=== PATIENT | male | born 1975 | race Caucasian/White ===

== ENCOUNTER 2016-12-14 16:42 | Outpatient (CLI) ==
[2016-12-14 17:45] LABS: ERYTHROCYTE SEDIMENTATION RATE 7 mm/hr (0-15); ESR INTERNAL QC INTERNAL QC VALID
== END 2016-12-14 16:43 | disposition home or self-care (01) ==
LOC: LAB 16:42
PROVIDERS: ATTEND General Practice
DX: R21 Rash and other nonspecific skin eruption (principal)
CPT/HCPCS: 36415; 85651; 86140

== ENCOUNTER 2017-03-05 12:13 | Outpatient (CLI) ==
[2017-03-05 13:25] LABS: ALBUMIN 4.5 g/dL (3.4-5.0); ANION GAP 18.1; BUN/CREATININE RATIO 15.38; CALCIUM 9.6 mg/dL (8.2-10.2); CREATININE 1.04 mg/dL (0.60-1.10); PHOSPHORUS 2.8 mg/dL (2.5-4.9); POTASSIUM 4.1 mmol/L (3.5-5.1)
== END 2017-03-05 12:14 | disposition home or self-care (01) ==
LOC: LAB 12:13
PROVIDERS: ATTEND General Practice
DX: E11.9 Type 2 diabetes mellitus without complications (principal)
CPT/HCPCS: 36415; 80069; 83036

== ENCOUNTER 2017-09-04 12:26 | Outpatient (CLI) ==
[2017-09-04 13:00] LABS: BUN/CREATININE RATIO 12.5; CALCIUM 9.7 mg/dL (8.2-10.2); CREATININE 1.12 mg/dL (0.60-1.10); PHOSPHORUS 2.6 mg/dL (2.5-4.9)
== END 2017-09-04 12:27 | disposition home or self-care (01) ==
LOC: LAB 12:26
PROVIDERS: ATTEND General Practice
DX: E11.65 Type 2 diabetes mellitus with hyperglycemia (principal)
CPT/HCPCS: 36415; 80069; 83036

== ENCOUNTER 2018-02-01 12:09 | Outpatient (CLI) | END 2018-02-01 12:10 | disposition home or self-care (01) | LOC: FCC-LAB 12:09 | PROVIDERS: ATTEND General Practice | DX: E11.65 Type 2 diabetes mellitus with hyperglycemia (principal); D64.9 Anemia, unspecified; Z79.899 Other long term (current) drug therapy | CPT/HCPCS: 36415; 80053; 80061; 81001; 83037; 83525; 85008; 85025 ==

== ENCOUNTER 2018-02-12 11:18 | Outpatient (CLI) | END 2018-02-12 11:19 | disposition home or self-care (01) | LOC: FCC-LAB 11:18 | PROVIDERS: ATTEND General Practice | DX: E11.65 Type 2 diabetes mellitus with hyperglycemia (principal); R63.8 Other symptoms and signs concerning food and fluid intake | CPT/HCPCS: 36415; 83519; 83525; 84681 ==

== ENCOUNTER 2018-04-19 16:10 | Outpatient (CLI) ==
[2018-04-12 10:38] VITALS: BMI 35.0
== END 2018-04-19 16:11 | disposition home or self-care (01) ==
LOC: FCC-LAB 16:10
PROVIDERS: ATTEND General Practice
DX: R50.9 Fever, unspecified (principal); W57.XXXA Bitten or stung by nonvenomous insect and other nonvenomous arthropods, initial encounter
CPT/HCPCS: 36415; 80053; 85025; 86757

== ENCOUNTER 2018-04-26 06:41 | Outpatient (CLI) ==
[2018-04-12 10:38] VITALS: BMI 35.0
[2018-04-26] MEDS ORDERED: DOXY-100 100 MG in SODIUM CHLORIDE 100 ML IV STA (07:59)
[2018-04-26 08:05] VITALS: BP 123/70; TEMP 97.8
== END 2018-04-26 06:42 | disposition home or self-care (01) ==
LOC: OPMED 06:41
PROVIDERS: ATTEND General Practice
DX: A77.0 Spotted fever due to Rickettsia rickettsii (principal)
CPT/HCPCS: 36415; 80076; 96365; 96366

== ENCOUNTER 2018-04-26 18:58 | Outpatient (CLI) ==
[2018-04-12 10:38] VITALS: BMI 35.0
[2018-04-26] MEDS ORDERED: DOXY-100 100 MG in SODIUM CHLORIDE 100 ML IV STA (20:17)
[2018-04-26 20:23] VITALS: BP 129/79; TEMP 98.1
== END 2018-04-26 18:59 | disposition home or self-care (01) ==
LOC: LAB 18:58 → OPMED 18:59
PROVIDERS: ATTEND General Practice
DX: A77.0 Spotted fever due to Rickettsia rickettsii (principal)

== ENCOUNTER 2018-04-27 06:20 | Outpatient (CLI) ==
[2018-04-12 10:38] VITALS: BMI 35.0
[2018-04-27] MEDS ORDERED: DOXY-100 100 MG in SODIUM CHLORIDE 100 ML IV STA (07:51)
[2018-04-27 10:05] VITALS: BP 110/74; TEMP 98.1
== END 2018-04-27 10:00 | disposition home or self-care (01) ==
LOC: OPMED 06:20
PROVIDERS: ATTEND General Practice
DX: A77.0 Spotted fever due to Rickettsia rickettsii (principal)

== ENCOUNTER 2019-01-17 17:12 | Emergency (ER) ==
[2019-01-17 17:23] VITALS: BP 143/93; TEMP 100.3; BMI 33.6
[2019-01-17] MEDS ORDERED: LACTATED RINGERS 1,000 ML IV STA (17:43)
--- NOTE | 2019-01-17 17:43 | ED.PDOC ---
General Stated Complaint: vomiting Time Seen by Physician: 17:35 Mode of Arrival: Walk-In Information Source: Patient, Family Exam Limitations: No limitations Nursing and Triage Documentation Reviewed and Agree: Yes Does patient meet sepsis criteria?: No If yes, has appropriate treatment been initiated?: Yes System Inflammatory Response Syndrome: Not Applicable <RILEYCHESTER - Last Filed: 01/17/19 17:40> Stated Complaint: he admits not taking his insulin for 2mos---"i just got tired of doing it"--denies any recent tick bites <CHESTER MCFADDEN - Last Filed: 01/17/19 20:17> ED Provider: Dr. CHESTER REDDY- Chief Complaint: Nausea/Vomiting [facility] Seps[facility] Protocol: For patient's 13 years and over: Temp is 96.8 and below OR 101 and greater Pulse >90 BPM Resp >20/minute Acutely Altered Mental Status Are patient's symptoms suggestive of a new infection, such as: -Pneumonia -Skin, Soft Tissue -Endocarditis -UTI -Bone, Joint Infection -Implantable Device -Acute Abdominal Infection -Wound Infection -Meningitis -Blood Stream Catheter Infection -Unknown Review of Systems - Review Of Systems Constitutional: Reports: Weakness Eyes: Reports: No symptoms Ears, Nose, Mouth, Throat: Reports: No symptoms Respiratory: Reports: No symptoms Cardiac: Reports: No symptoms GI: Reports: Nausea : Reports: No symptoms Musculoskeletal: Reports: No symptoms Skin: Reports: No symptoms Neurological: Reports: No symptoms Endocrine: Reports: No symptoms Hematologic/Lymphatic: Reports: No symptoms All Other Systems: Reviewed and Negative <RILEYCHESTER - Last Filed: 01/17/19 17:40> Past Medical History - Past Medical History Previously Healthy: Yes Endocrine: Reports: DM 1 Cardiovascular: Reports: None, Unknown Respiratory: Reports: None, Unknown Hematological: Reports: None, Unknown Gastrointestinal: Reports: None, Unknown Genitourinary: Reports: None, Kidney stones Neuro/Psych: Reports: None, Unknown Musculoskeletal: Reports: None, Unknown Cancer: Reports: None, Unknown - Surgical History General Surgical History: Reports: None - Family History Family History: Reports: None - Social History Smoking Status: Never smoker Hx Substance Use: No Alcohol Screening: None <CHESTER LIN - Last Filed: 01/17/19 17:40> Physical Exam - Physical Exam Appearance: Obese Ill-appearing: Mild Eyes: ANA MARÍA, EOMI, Conjunctiva clear ENT: Ears normal, Nose normal, Oropharynx normal Respiratory: Airway patent, Breath sounds clear, Breath sounds equal, Respirations nonlabored Cardiovascular: RRR, Pulses normal, No rub, No murmur GI/: Bowel sounds hypoactive Musculoskeletal: Normal strength, ROM intact, No edema, No calf tenderness Skin: Warm, Dry, Normal color Neurological: Sensation intact, Motor intact, Reflexes intact, Cranial nerves intact, Alert, Oriented Psychiatric: Affect appropriate, Mood appropriate <CHESTER LIN - Last Filed: 01/17/19 17:40> Re-Evaluation - Re-Evaluation Time of Re-Evaluation: 20:14 Status: Improved Vital Signs Stable: Yes Pain Level: 0 Appearance: NAD Lungs: Clear Skin: Warm and Dry Neuro: Alert and Oriented X3 CV: RRR <CHESTER MCFADDEN - Last Filed: 01/17/19 20:17> Critical Care Note - Critical Care Note Total Time (mins): 0 <CHESTER LIN - Last Filed: 01/17/19 17:40> Course - Course Hematology/Chemistry: 01/17/19 17:51 01/17/19 17:51 <BEN[facility] HOSPITALLIZETCHESTER - Last Filed: 01/17/19 20:17> - Course Orders, Labs, Meds: Lab Review 01/17/19 01/17/19 01/17/19 17:35 17:35 17:51 WBC 10.64 H RBC 7.59 H Hgb 15.4 Hct 49.3 MCV 65.0 L MCH 20.3 L MCHC 31.2 L RDW Coeff of Mendez 18.4 H Plt Count 236 Immature Gran % (Auto) 0.5 Neut % (Auto) 93.6 Lymph % (Auto) 3.5 L Randolph % (Auto) 2.0 Eos % (Auto) 0.3 Baso % (Auto) 0.1 Immature Gran # (Auto) 0.1 Neut # (Auto) 10.0 H Lymph # (Auto) 0.4 L Randolph # (Auto) 0.2 L Eos # (Auto) 0.0 Baso # (Auto) 0.0 Anisocytosis Not present Microcytosis 1+ Puncture Site O2 Saturation ABG pH ABG pCO2 ABG pO2 ABG HCO3 ABG Total CO2 ABG Base Excess Klaus Test FiO2 % Sodium Potassium Chloride Carbon Dioxide Anion Gap BUN Creatinine Estimated GFR (MDRD) BUN/Creatinine Ratio Glucose Calcium Total Bilirubin AST ALT Alkaline Phosphatase Total Creatine Kinase 71.3 Troponin I < 0.012 Total Protein Albumin Globulin Albumin/Globulin Ratio Amylase 47.3 Lipase 83.3 Urine Color Urine Clarity Urine pH Ur Specific Rembrandt Urine Protein Urine Glucose (UA) Urine Ketones Urine Blood Urine Nitrite Urine Bilirubin Urine Urobilinogen Ur Leukocyte Esterase Influ A Molecular Assay Influ B Molecular Assay 01/17/19 01/17/19 01/17/19 17:51 18:35 18:53 WBC RBC Hgb Hct MCV MCH MCHC RDW Coeff of Mendez Plt Count Immature Gran % (Auto) Neut % (Auto) Lymph % (Auto) Randolph % (Auto) Eos % (Auto) Baso % (Auto) Immature Gran # (Auto) Neut # (Auto) Lymph # (Auto) Randolph # (Auto) Eos # (Auto) Baso # (Auto) Anisocytosis Microcytosis Puncture Site Lrad O2 Saturation 97.0 ABG pH 7.406 ABG pCO2 33.2 L ABG pO2 84.0 L ABG HCO3 20.9 L ABG Total CO2 22 ABG Base Excess -4 L Klaus Test + FiO2 % 21.0 Sodium 135.1 Potassium 3.83 Chloride 100.3 Carbon Dioxide 24.3 Anion Gap 14.33 BUN 13.2 Creatinine 0.91 Estimated GFR (MDRD) 91.00 BUN/Creatinine Ratio 14.50 Glucose 250.4 H Calcium 9.09 Total Bilirubin 1.06 AST 25.7 ALT 26.5 Alkaline Phosphatase 80.2 Total Creatine Kinase Troponin I Total Protein 7.43 Albumin 4.70 Globulin 2.73 Albumin/Globulin Ratio 1.72 Amylase Lipase Urine Color Urine Clarity Urine pH Ur Specific Rembrandt Urine Protein Urine Glucose (UA) Urine Ketones Urine Blood Urine Nitrite Urine Bilirubin Urine Urobilinogen Ur Leukocyte Esterase Influ A Molecular Assay Negative by naat Influ B Molecular Assay Negative by naat 01/17/19 19:52 WBC RBC Hgb Hct MCV MCH MCHC RDW Coeff of Mendez Plt Count Immature Gran % (Auto) Neut % (Auto) Lymph % (Auto) Randolph % (Auto) Eos % (Auto) Baso % (Auto) Immature Gran # (Auto) Neut # (Auto) Lymph # (Auto) Randolph # (Auto) Eos # (Auto) Baso # (Auto) Anisocytosis Microcytosis Puncture Site O2 Saturation ABG pH ABG pCO2 ABG pO2 ABG HCO3 ABG Total CO2 ABG Base Excess Klaus Test FiO2 % Sodium Potassium Chloride Carbon Dioxide Anion Gap BUN Creatinine Estimated GFR (MDRD) BUN/Creatinine Ratio Glucose Calcium Total Bilirubin AST ALT Alkaline Phosphatase Total Creatine Kinase Troponin I Total Protein Albumin Globulin Albumin/Globulin Ratio Amylase Lipase Urine Color Yellow Urine Clarity Clear Urine pH 5.5 Ur Specific Rembrandt 1.020 Urine Protein Negative Urine Glucose (UA) 2+ Urine Ketones 3+ Urine Blood Negative Urine Nitrite Negative Urine Bilirubin Negative Urine Urobilinogen 0.2 Ur Leukocyte Esterase Negative Influ A Molecular Assay Influ B Molecular Assay Orders Category Date Time Status ABG DRAW REQUEST Stat CARDIO 01/17/19 18:35 Completed EKG-(ED ONLY) Stat CARDIO 01/17/19 18:36 Completed IV [ED IV/MEDIPORT/POWERPORT] .ONCE EMERGENCY 01/17/19 17:42 Active ABG Stat LAB 01/17/19 18:35 Completed AMYLASE Stat LAB 01/17/19 17:35 Completed CBC W/ AUTO DIFF Stat LAB 01/17/19 17:51 Completed CMP [COMPREHENSIVE METABOLIC PANEL] Stat LAB 01/17/19 17:51 Completed CREATINE KINASE Stat LAB 01/17/19 17:35 Completed FLU A/B MOLECULAR Stat LAB 01/17/19 18:53 Completed LIPASE Stat LAB 01/17/19 17:35 Completed MOLECULAR GROUP A STREP Stat LAB 01/17/19 18:53 Completed RBC MORPHOLOGY Stat LAB 01/17/19 17:51 Completed TROPONIN I Stat LAB 01/17/19 17:35 Completed UA [URINALYSIS C & S IF INDICATED] Stat LAB 01/17/19 19:52 Completed 0.9 % Sodium Chloride [Saline Flush] MEDS 01/17/19 17:42 Ordered 1 syr IVF PRN PRN Ondansetron HCl/Pf [Zofran 4 mg/2 ml] MEDS 01/17/19 18:36 Discontinued 4 mg IVP ONCE STA Ringers Lactated Solution [Lactated Ringers] 1,000 ml MEDS 01/17/19 17:43 Discontinued IV BOLUS Sodium Chloride 0.9% [Sodium Chloride] 1,000 ml MEDS 01/17/19 19:03 Active IV 100 mls/hr CT ABDOMEN/PELVIS WO CONTRAST Stat RADS 01/17/19 18:36 Completed Medications Generic Name Dose Route Start Last Admin Trade Name Freq PRN Reason Stop Dose Admin Sodium Chloride 1,000 mls @ 100 mls/hr 01/17/19 19:03 01/17/19 19:06 Sodium Chloride IV 01/18/19 05:02 100 mls/hr .Q10H STA Administration Sodium Chloride 1 syr 01/17/19 17:42 01/17/19 18:03 Saline Flush IVF 1 syr PRN PRN Administration To flush IV Discontinued Medications Generic Name Dose Route Start Last Admin Trade Name Freq PRN Reason Stop Dose Admin Lactated Ringer's 1,000 mls @ 1,000 mls/hr 01/17/19 17:43 01/17/19 18:03 Lactated Ringers IV 01/17/19 18:42 1,000 mls/hr BOLUS STA Administration Ondansetron HCl 4 mg 01/17/19 18:36 01/17/19 18:51 Zofran 4 Mg/2 Ml IVP 01/17/19 18:37 4 mg ONCE STA Administration Vital Signs: Temp Pulse Resp BP Pulse Ox 01/17/19 17:12 100.3 F H 115 H 20 143/93 H 97 Departure <RILEYCHESTER - Last Filed: 01/17/19 17:40> - Departure Time of Disposition: 20:14 Pt referred to PMD for follow-up: Yes IPMP verified?: No Disposition Discussed With: Patient <PETELIZETCHESTER - Last Filed: 01/17/19 20:17> - Departure Disposition: HOME SELF-CARE Discharge Problem: Vomiting Instructions: Acute Nausea and Vomiting (ED) Condition: Good Additional Instructions: resume your insulin---f/u with dr ocampo next week Allergies/Adverse Reactions: Allergies metformin Adverse Reaction (Severe, Verified 01/17/19 17:21) Diarrhea severe at most 10x per day. ibuprofen Adverse Reaction (Verified 01/17/19 17:21) irritates stomach Muscle relaxers Adverse Reaction (Mild, Uncoded 04/26/18 08:20) irritates stomach
[2019-01-17] MEDS ORDERED: ZOFRAN 4 MG/2 ML IVP STA (18:36)
[2019-01-17] MEDS ORDERED: SODIUM CHLORIDE 1,000 ML IV STA (19:03)
--- NOTE | 2019-01-17 19:27 | CT ---
EXAM: Noncontrast CT of the abdomen and pelvis. HISTORY: Vomiting. COMPARISON: None. TECHNIQUE: Contiguous axial images at 3 mm intervals were obtained from lung bases through the pelvi s. No contrast was given. Coronal reformats were reviewed. FINDINGS: The study is limited without contrast. CHEST: LUNG BASES: The lung bases show no lobar consolidation or effusion. HEART: The heart size is within normal limits. ABDOMEN: Evaluation of the soft tissue organs is limited without contrast. LIVER: Noncontrast images of the liver show no solid mass lesion or intrahepatic ductal dilatation. BILIARY: The gallbladder is normally distended. No gallstones are noted. No pericholecystic fluid or inflammation. The common bile duct is normal. SPLEEN: The spleen is unremarkable. PANCREAS: The pancreas shows no mass lesion or peripancreatic inflammation. ADRENAL GLANDS: The adrenal glands are normal. RENAL: The kidneys show no hydronephrosis there is a nonobstructing calcification in the left mid k idney, measuring up to 3 mm. There are no obstructing ureteral stones. No solid mass lesions are id entified. AORTA: No significant aortic calcifications are seen. No aneurysm is identified. RETROPERITONEUM: There is no retroperitoneal or mesenteric adenopathy. BOWEL: The bowel is unopacified. There is no obstruction or inflammatory change. There is no free fluid or free air. No significant inflammatory changes are seen. The appendix is identified and is normal. PELVIS: BLADDER: The bladder is well distended and appears normal. GENITOURINARY STRUCTURES: The prostate is unremarkable. OSSEOUS STRUCTURES: The osseous structures are normal for age. IMPRESSION 1. Limited study without contrast.No acute intra-abdominal abnormality. No obstructing ureteral sto laly. 2. The appendix is normal. 3. Normal nonobstructing left nephrolithiasis.
== END 2019-01-17 20:38 | disposition home or self-care (01) ==
LOC: ED 17:12
DX: R11.2 Nausea with vomiting, unspecified (principal); R53.1 Weakness; E10.9 Type 1 diabetes mellitus without complications; Z91.14 Patient's other noncompliance with medication regimen
CPT/HCPCS: 36415; 80053; 81001; 82150; 82550; 82803; 82962; 83690; 84484; 85008; 85025; 87502; 87651; 93005; 93010; 96361; 96374; 99283

== ENCOUNTER 2019-04-22 12:43 | Inpatient (IN) ==
[2019-04-22 13:19] VITALS: BMI 34.0
[2019-04-22] MEDS ORDERED: LACTATED RINGERS 1,000 ML IV SCH (14:00)
--- NOTE | 2019-04-22 14:47 | CT ---
EXAM: CT abdomen pelvis without contrast HISTORY: Nausea, vomiting, diarrhea COMPARISON: None TECHNIQUE: CT abdomen pelvis performed without intravenous contrast. Coronal and sagittal reformatt ed images obtained. FINDINGS: Mild bibasilar subsegmental atelectasis. No free air. No acute abnormalities of the bone s. Heart normal in size. Liver diffusely decreased attenuation. Liver is enlarged. Gallbladder un remarkable. Pancreas unremarkable. Pain unremarkable. Adrenals unremarkable. A few small bilatera l renal calculi measuring up to 3 mm on the left. No hydronephrosis. No calculi visualized in the n ormal course of the ureters. Bladder only mildly distended and poorly evaluated, grossly unremarkabl e.. Prostate normal in size. Small fat-containing right inguinal hernia. Aorta normal in caliber. No lymphadenopathy or ascites. Stomach unremarkable. No dilated loops small bowel. Appendix appea rs normal. Colon unremarkable. No inflammatory stranding identified in the abdomen pelvis. IMPRESSION: 1. No acute inflammatory process identified in the abdomen pelvis 2. Hepatic steatosis. Hepatomegaly. 3. Bilateral nephrolithiasis. No hydronephrosis.
--- NOTE | 2019-04-22 14:50 | DI ---
Exam: Two views of the chest. Comparison: None available. Reason for exam: Nausea, vomiting blood in stool. FINDINGS: No pneumothorax, pleural effusion, or focal airspace consolidation. The cardiac silhouett e is not enlarged. The imaged osseous structures appear grossly unremarkable without acute fracture. Impression: No acute cardiopulmonary process.
[2019-04-22] MEDS: HUMALOG SUBCUT SCH (16:50)
[2019-04-22] MEDS ORDERED: TYLENOL PO PRN (18:09)
[2019-04-22] MEDS: LANTUS SUBCUT SCH (20:50)
[2019-04-22] MEDS ORDERED: INFUVITE ADULT IV SCH (21:30)
[2019-04-22] MEDS ORDERED: POTASSIUM CHLORIDE IV SCH (21:30)
[2019-04-22] MEDS ORDERED: [UNRECOGNIZED DRUG - OTHER] IV SCH (21:30)
[2019-04-22] MEDS ORDERED: POTASSIUM CHLORIDE 10 MEQ VIAL IV ONE (21:42)
[2019-04-22] MEDS ORDERED: INFUVITE ADULT IV ONE (21:43)
[2019-04-23] MEDS: ZITHROMAX PO SCH ×2 (00:35→08:28)
[2019-04-23] MEDS: HUMALOG SUBCUT SCH ×3 (08:28→17:04)
[2019-04-23] MEDS ORDERED: POTASSIUM CHLORIDE IV SCH (08:30)
[2019-04-23] MEDS ORDERED: [UNRECOGNIZED DRUG - OTHER] IV SCH (08:30)
[2019-04-23] MEDS ORDERED: INFUVITE ADULT IV SCH (08:30)
--- NOTE | 2019-04-23 11:40 | CONS ---
DATE OF CONSULTATION: 04/23/19 REASON FOR CONSULTATION: Cardiovascular status. HISTORY OF PRESENT ILLNESS: This 44 year old WHITE/ M was hospitalized 04/22/19. The patient has acute gastroenteritis type of symptoms for last 3 to 4 weeks, attributes that to stopping insulin. For the past several weeks, the patient hasn't been taking insulin because it is too expensive for him to buy. For the past 24 hours the patient has developed bloody stools. Denies fever or chills. REVIEW OF SYSTEMS: CONSTITUTIONAL: No night sweats. No fatigue, malaise, lethargy. No fever or chills. HEENT: Eyes: No visual changes. No eye pain. No eye discharge. ENT: No sinus drainage. No epistaxis. No sinus pain. No sore throat. No odynophagia. No ear pain. No congestion. RESPIRATORY: No cough, no congestion. No hemoptysis. No shortness of breath. CARDIOVASCULAR: No angina symptoms. No CHF symptoms. No atypical chest pain for CAD. No palpitations. No orthopnea. GASTROINTESTINAL: GI symptoms like gastroenteritis. No abdominal pain. No nausea or vomiting. No diarrhea or constipation. No hematemesis. No hematochezia. GENITOURINARY: No urgency. No frequency. No dysuria. No hematuria. No obstructive symptoms. No discharge. No pain. No significant abnormal bleeding. MUSCULOSKELETAL: No musculoskeletal pain. No joint swelling. NEUROLOGICAL: Awake, alert, oriented times three. No headache. No neck pain. No syncope. No seizures. No dizziness. PSYCHIATRIC: Not anxious. No depression. No suicidal thoughts. No homicidal thoughts. SKIN: No rash. No lesions. No wounds. ENDOCRINE: No unexplained weight loss. No weight gain. HEMATOLOGIC/LYMPHATIC: No anemia. No purpura. No petechiae. No prolonged or excessive bleeding. No palpable lymph nodes. MEDICATIONS: Lantus 25 units in evening - hasn't been taking it for four weeks. ALLERGIES: METFORMIN, IBUPROFEN, (MUSCLE RELAXERS) PAST MEDICAL HISTORY: Diabetes mellitus type 2 SOCIAL/PERSONAL/FAMILY HISTORY: The patient is a nonsmoker. He is , lives with . No history of drug abuse. No history of alcohol abuse. Father has history of heart diease, alive, age 78. History of stroke. PHYSICAL EXAMINATION: VITAL SIGNS: Temperature 97.5 F, Pulse 75, Respiratory Rate 20, BP 124/81, Pulse Ox 100% HEENT: Head normocephalic, atraumatic. Eyes: Extraocular muscles are intact. Pupils are equal, round and reactive to light and accommodation. Ears: No lesions. Nose appeared normal. Throat: No exudate or erythema. NECK: Supple. No JVD, no carotid bruit. No lymphadenopathy or thyromegaly. LUNGS: Clear to auscultation. Percussion note normal. Chest symmetrical. HEART: S1, S2, no S3. No murmurs. No cyanosis or clubbing. No ascites. Pulses: Dorsalis pedis and posterior tibial pulses +1 to +2 bilaterally. ABDOMEN: Soft. Nontender. Bowel sounds active. No CVA tenderness. No mass felt. EXTREMITIES: No edema. Full range of motion of all extremities, equal. NEUROLOGIC: No focal deficit. Cranial nerves II through XII are grossly intact. No headache, no double vision or headache. SKIN: Not dry. Intact. Turgor - normal. LYMPHATIC: No palpable lymph nodes/no lymphedema. MUSCULOSKELETAL: Normal joints with no swelling. Muscle tone is normal. LAB REVIEW: 04/23/19 04:44 04/23/19 04:44: Sodium 138.7, Potassium 3.69, Chloride 102.9, Carbon Dioxide 25.1, Anion Gap 14.39, BUN 9.4, Creatinine 0.83, Estimated GFR (MDRD) 101.00, BUN/Creatinine Ratio 11.32, Glucose 182.8 H D, Calcium 8.62, Total Bilirubin 0.89, AST 27.2, ALT 26.0, Alkaline Phosphatase 63.6, Total Protein 6.81, Albumin 3.83, Globulin 2.98, Albumin/Globulin Ratio 1.28 04/23/19 04:44: WBC 8.87, RBC 7.15 H, Hgb 14.5, Hct 46.4, MCV 64.9 L, MCH 20.3 L , MCHC 31.3 L, RDW Coeff of Mendez 17.8 H, Plt Count 230, Immature Gran % (Auto) 0.6, Neut % (Auto) 62.4, Lymph % (Auto) 27.3, Beau[place] % (Auto) 6.4, Eos % (Auto) 2.7, Baso % (Auto) 0.6, Immature Gran # (Auto) 0.1, Neut # (Auto) 5.5, Lymph # ( Auto) 2.4, Beau[place] # (Auto) 0.6, Eos # (Auto) 0.2, Baso # (Auto) 0.1, Plt Morphology Comment Few large platelets, Anisocytosis 1+, Microcytosis 1+ 04/22/19 20:45: ESR 2 04/22/19 14:45: PT 9.7, INR 0.97, APTT 26.5 04/22/19 14:00: Puncture Site R rad, O2 Saturation 96.0, ABG pH 7.400, ABG pCO2 35.2, ABG pO2 83.0 L, ABG HCO3 21.8 L, ABG Total CO2 23, ABG Base Excess -3 L, Klaus Test +, FiO2 % 21.0 04/22/19 13:58: Stl Occult Blood (IFOB) Positive, Stool Occult Blood #2 No specimen received, Stool Occult Blood #3 No specimen received 04/22/19 12:05: Urine Color Yellow, Urine Clarity Clear, Urine pH 5.5, Ur Specific Mershon 1.015, Urine Protein Negative, Urine Glucose (UA) 3+ H, Urine Ketones Negative, Urine Blood Negative, Urine Nitrite Negative, Urine Bilirubin Negative, Urine Urobilinogen 0.2, Ur Leukocyte Esterase Negative 04/22/19 12:05: Procalcitonin < 0.05 04/22/19 12:05: Hemoglobin A1c 12.74 H D 04/22/19 12:05: Sodium 138.1, Potassium 3.95, Chloride 99.4, Carbon Dioxide 25.3 , Anion Gap 17.35, BUN 10.6, Creatinine 0.83, Estimated GFR (MDRD) 101.00, BUN/ Creatinine Ratio 12.77, Glucose 314.3 H, Calcium 9.51, Total Bilirubin 0.80, AST 28.3, ALT 28.8, Alkaline Phosphatase 83.5, Total Protein 8.23 H, Albumin 4.78, Globulin 3.45, Albumin/Globulin Ratio 1.38, Triglycerides 274.8 H, Cholesterol 222.1 H, LDL Cholesterol, Calc 130, VLDL Cholesterol 55 H, HDL Cholesterol 37.6, Cholesterol/HDL Ratio 5.9, Amylase 72.4, Lipase 114.2 04/22/19 12:05: WBC 8.32, RBC 7.66 H, Hgb 15.7, Hct 50.0, MCV 65.3 L, MCH 20.5 L , MCHC 31.4 L, RDW Coeff of Mendez 18.3 H, Plt Count 278, Immature Gran % (Auto) 0.5, Neut % (Auto) 69.9, Lymph % (Auto) 21.6, [place] % (Auto) 5.0, Eos % (Auto) 2.4, Baso % (Auto) 0.6, Immature Gran # (Auto) 0.0, Neut # (Auto) 5.8, Lymph # ( Auto) 1.8, [place] # (Auto) 0.4, Eos # (Auto) 0.2, Baso # (Auto) 0.1, Anisocytosis Not present, Microcytosis 1+ ASSESSMENT: 1. Evaluation of cardiovascular status seems to be normal at the present time. 2. History of Diabetes Mellitus Type 2, off insulin per patient's choice. 3. Acute gastroenteritis with bloody diarrhea, etiology unknown. RECOMMENDATIONS: 1. EKG. 2. Agrees with Accu-Cheks with sliding scale. 3. Advised to take insulin on a regular basis. 4. Lipid profile unknown. The patient is being followed by Dr. aSlas as primary care provider. Thanks for referral, will follow. PLAN: Plan and coordination of the patient's care discussed in the presence of Handkerchief Maker and Nurse. SCRIBED BY: Phyllis ROUSSEAU scribed while in presence of service performed by Dr. KELLI DAILY on 04/23/19 (08) SCRIBED BY: Phyllis ROUSSEAU scribed while in presence of service performed by Dr. KELLI DAILY on 04/23/19 (807) [facility] SYSTEM[facility]ip
[2019-04-23] MEDS: LANTUS SUBCUT SCH (21:12)
[2019-04-24] MEDS: ZITHROMAX PO SCH (08:06)
[2019-04-24] MEDS: HUMALOG SUBCUT SCH ×2 (08:07→12:00)
--- NOTE | 2019-04-24 11:59 | HP ---
DATE OF SERVICE: 04/22/19 CHIEF COMPLAINT: Nausea, vomiting, diarrhea, blood in the stool and numbness to the right lower extremity. HISTORY OF PRESENT ILLNESS: Mr. Abbott is a pleasant 44-year-old patient of Dr. Salas who has not been to see Dr. Salas since almost one year. He has been out of his insulin for approximately four weeks now. He tells me that his blood sugars have been running extremely high. The readings that he has given me he said at night has been over 300 and in the mornings approximately 260. He also tells me that he has been losing feeling to the bottom of his right foot along with tingling. He admits to being noncompliant with his medicines but he admits that he has been out of his medicines. He had previously been taking Tresiba 25 units at nightime and he has been taking NovoLog 8 to 10 units three times a day with meals. He tells me that everytime he eats certain foods especially if they are fatty foods he will get very sick and vomit these foods up or he will have diarrhea. He tells me that bland diets work better for him. He does better when he eats grilled chicken or again very bland foods. At 2 o'clock this morning he had an episode of bloody stool then recently right before he came in for his appointment he had an other episode of bloody stool. He tells me it is bright red blood. He noticed it in the toilet and then he noticed it when he was wiping as well and it was on the toilet paper. He overall does not feel well. He is not having any particular abdominal pain and there is no abdominal pain on exam. Again he has not had insulin in approximately four weeks. There is some concern here for some possible gastroparesis. He does tell me that he had an ER visit approximately four weeks ago for similar complaints of nausea and vomiting. He did have an ultrasound completed at this time as well as some lab work done. The last imaging found in his chart was done in January of [address] scan of the abdomen and pelvis. I did see labs from 04/13/18 and did see blood work from 01/17/19. Other than that I did not see any other lab work completed from four weeks ago. Labs were obtained in the office today. Dr. Salas did decide with the acute concerns to go ahead and admit the patient to the hospital, start him on IV fluids, order labs and get a further workup on the patient. PAST PERSONAL HISTORY: Diabetes mellitus type 2 Gastroesophageal reflux disease Migraine headache Thallasemia minor Kidney stones PAST SURGICAL HISTORY: None recorded. FAMILY HISTORY: Coronary artery disease in his father Diabetes mellitus in a brother Artery stents in father, myocardial infarction and thallasemia minor in his mother SOCIAL HISTORY: The patient does report occasional use of beer. Denies any substance abuse. No reports of smoking. MEDICATIONS: (Current Home) Currently the patient is not taking any home medications. ALLERGIES: METFORMIN, IBUPROFEN AND MUSCLE RELAXERS REVIEW OF SYSTEMS: CONSTITUTIONAL: Generalized fatigue and weakness. No reports of fevers, chills and nightsweats or weight changes. HEENT: Does report a history of migraine headaches. Denies any blurred vision, nasal drainage or sore throat. CARDIOVASCULAR: No reports of any chest pain, irregular rhythm, orthopnea or peripheral edema. LUNGS: No complaints of shortness of breath, cough, congestion or history of lung disease. GI: Does complain of nausea, vomiting, diarrhea, blood in the stool. No complaints of constipation or abdominal pain. : No reports of dysuria, hematuria, nocturia or urinary incontinence. MUSCULOSKELETAL: No reports of unusual muscle pain, joint redness or swelling. NEUROLOGIC: No reports of any lateral weakness or CVA or stroke-like symptoms. Does complain of generalized weakness and fatigue. No reports of dizziness. PSYCHIATRIC: No complaints of anxiety, depression or mood changes. ENDOCRINE: Does have a history of diabetes mellitus. No reports of thyroid disease. No reports of increase in thirst, urination, heat or cold intolerance. INTEGUMENT: No reports of rashes, lesions or skin changes. PHYSICAL EXAMINATION: GENERAL: He is alert and oriented. Well-nourished in no acute distress. VITAL SIGNS: Height 5'8, weight 228 lbs, pulse 85, respirations 20, blood pressure 144/88. 02 sat 98% on room air. HEENT: Head normocephalic, atraumatic. Pupils are equal. Conjunctivae are clear. Mucous membranes are moist. NECK: Supple. No lymphadenopathy. No thyromegaly. No carotid bruits auscultated. CARDIOVASCULAR: S1, S2, regular rate and rhythm. No peripheral edema. LUNGS: Clear. No acute distress. ABDOMEN: Soft, bowel sounds are positive in all four quads. No rebound tenderness or rigidity. NEUROLOGIC: Cranial nerves 2-12 are grossly intact. No overt neurological deficit. SKIN: Warm and dry. No overt rashes, lesions or wounds. LABS AND DIAGNOSTIC TESTING: Ordered. The patient has not had any labs or diagnostic testing done in quite some time. ASSESSMENT/PLAN: 1. Persistent nausea, vomiting, rule out gastroparesis. 2. Diarrhea with bright red blood per rectum. 3. Diabetes mellitus Type 2, uncontrolled. 4. Noncompliance with medical regimen. 5. History of anemia. 6. Generalized weakness and fatigue. 7. History of migraine. 8. Gastroesophageal reflux disease. 9. Obesity. PLAN: 1. Admit the patient inpatient. 2. The patient will be kept NPO. 3. Will do CT scan of the abdomen and pelvis. 4. Obtain STAT labs including occult blood stool as well as stool cultures as well. 5. We will start him on Lantus Insulin 25 units at bedtime, Humalog 10 units with each meal. 6. Will start him on IV fluids, Lactated Ringers with 20 mEq potassium with MVI 125 mL/hr. 7. Check blood sugars on him two hours after meals. 8. Further orders and recommendations per Dr. Salas. TIME SPENT: GREATER THAN 65 MINUTES MTDD
--- NOTE | 2019-04-24 12:55 | PN ---
DATE OF SERVICE: 04/23/19 SUBJECTIVE: The patient was seen this morning. Vital signs this morning temperature 97.5, pulse 75, blood pressure 124/81, pulse ox 100% on room air. His microbiology of his stool cultures were reviewed. His stool culture preliminary results have grown out positive for Campylobacter antigen, negative for Shiga Toxin I and negative for Shiga Toxin 2. White blood cells present for fecal leukocytes. Per lab review his white blood cell count is normal this morning. His hemoglobin 14.5, hematocrit 46.4. Chemistry panel sodium 138.7, BUN 9.4, creatinine 0.83. His glucose down to 182.8 after initiation of insulin. Hemoglobin A1C 12.74. Procalcitonin less than 0.05. Blood gases reviewed, pH 7.4, pc02 35.2, p02 83, HC03 21.8, 02 saturation 96%. Occult blood stool positive. Sed rate normal at 2. Amylase and lipase are normal. Today abdomen is soft, bowel sounds are positive in all four quads, nontender on exam. Lungs are clear. Heart regular rate and rhythm. He has had no episodes of nausea and vomiting this morning. He has been NPO. He continues on IV fluids. He does tell me that his blood sugars have been improved. Overall he does feel a bit better. Further orders and recommendations per Dr. Salas. [facility]
[2019-04-24 14:37] VITALS: BP 130/67; TEMP 98.1
--- NOTE | 2019-04-25 13:42 | CONS ---
DATE OF SERVICE: 04/24/19 CONSULT FOLLOWUP SUBJECTIVE: The patient was seen on followup on consultation. The patient has been hospitalized with acute gastroenteritis and Campylobacter. The patient is feeling alot better. He has formed stools. REVIEW OF SYSTEMS: CONSTITUTIONAL: No night sweats. No fatigue, malaise, lethargy. No fever or chills. HEENT: Eyes: No visual changes. No eye pain. No eye discharge. ENT: No runny nose. No epistaxis. No sinus pain. No sore throat. No odynophagia. No ear pain. No congestion. RESPIRATORY: No cough, no congestion. No hemoptysis. CARDIOVASCULAR: No angina symptoms. No CHF symptoms. No atypical chest pain for CAD. No palpitations. No shortness of breath. GASTROINTESTINAL: No abdominal pain. No nausea or vomiting. No diarrhea or constipation. No hematemesis. No hematochezia. GENITOURINARY: No urgency. No frequency. No dysuria. No hematuria. No obstructive symptoms. No discharge. No pain. No significant abnormal bleeding. MUSCULOSKELETAL: No musculoskeletal pain. No joint swelling. No arthritis. The patient is up and about. NEUROLOGICAL: No headache. No neck pain. No syncope. No seizures. No dizziness. PSYCHIATRIC: Not anxious. No depression. No suicidal thoughts. No homicidal thoughts. SKIN: No rash. No lesions. No wounds. ENDOCRINE: No unexplained weight loss. No weight gain. HEMATOLOGIC/LYMPHATIC: No anemia. No purpura. No petechiae. No prolonged or excessive bleeding. No palpable lymph nodes. PHYSICAL EXAMINATION: GENERAL: The patient is oriented to time, place and person. VITAL SIGNS: Temperature 97.6, pulse 80, respiratory rate 15, blood pressure 130 /80 pule ox more than 98% on room air. HEENT: Head normocephalic, atraumatic. Eyes: Extraocular muscles are intact. Pupils are equal, round and reactive to light and accommodation. Ears: No lesions. Nose appeared normal. Throat: No exudate or erythema. NECK: Supple. No JVD, no carotid bruit. No lymphadenopathy or thyromegaly. LUNGS: Decreased breath sounds but clear to auscultation. Percussion note normal. Chest symmetrical. HEART: S1, S2, no S3. No murmurs. No cyanosis or clubbing. No ascites. Pulses: Dorsalis pedis and posterior tibial pulses +1 to +2 bilaterally. ABDOMEN: Soft. Nontender. Bowel sounds active. No CVA tenderness. No mass felt. EXTREMITIES: No edema. Full range of motion of all extremities, equal. NEUROLOGIC: No focal deficit. Cranial nerves II through XII are grossly intact. No headache, no double vision or headache. SKIN: Not dry. Intact. Turgor - normal. LYMPHATIC: No palpable lymph nodes/no lymphedema. MUSCULOSKELETAL: Normal joints with no swelling. Muscle tone is normal. ASSESSMENT: 1. Campylobacter 2. Acute gastroenteritis RECOMMENDATIONS: 1. Discussed the case with attending. Concern was that the Campylobacter could affect the cardiac status. So far the patient's cardiovascular status is stable with no evidence of CHF or coronary insufficiency or pericarditis or myocarditis. 2. The patient has history of diabetes mellitus, poorly treated the patient's choice. He has stopped taking insulin for past 4 weeks. Strongly advised to continue to take his insulin on regular basis and have regular followup with his primary care. 3. Non-HDL goal discussed which should be 100. Cardiovascular status stable. MTDD
--- NOTE | 2019-04-25 13:42 | PN ---
The patient was seen on consultation 04/23/19: Level 5 04/24/19: Intermediate MTDD
--- NOTE | 2019-04-29 13:01 | DS ---
DATE OF SERVICE: 04/24/19 DISCHARGE DIAGNOSES: 1. ACUTE COLITIS DUE TO CAMPYLOBACTER CONFIRMED PER STOOL CULTURE. 2. CAMPYLOBACTER GASTROENTEROCOLITIS. 3. UNCONTROLLED DIABETES MELLITUS TYPE 2. 4. DIABETES PERIPHERAL NEUROPATHY. 5. POSSIBLE GASTROPARESIS. BRIEF HISTORY OF PRESENT ILLNESS/HOSPITAL COURSE: Mr. Abbott is a pleasant 44-year-old patient of Dr. Salas who has been lost to followup for approximately one year. He has been out of his insulin for about four weeks now. His blood sugar has been running extremely high. He also had reported losing feeling to the bottom of his right foot along with tingling sensation. He does admit to being noncompliant with his medicines but he admits this is because he has been out of his medicines. He did previously take Tresiba 25 units at bedtime and had been taking Novolog 8 to 10 units three times a day with meals. He tells us at his initial visit on the that every time he eats certain foods, especially if they are fatty, he will get very sick and will have emesis of his food and will have diarrhea. He tells me that bland foods work better. He reports that at two o'clock in the morning prior to admission he had an episode of bloody stool then right before he was seen in the office he had another episode of bloody stool. He does describe the blood as a bright red blood and he does notice it in the toilet and then he notices it when he wipes. He does not feel well. He denies having any particular abdominal pain. He denies anybody in his family being sick. There are some concerns for possible gastroparesis due to the uncontrolled diabetes mellitus. He does report that he had an emergency department visit approximately four weeks ago for similar complaints of nausea and vomiting. He had an ultrasound completed at this time as well as some lab work. The last imaging found in his chart was done in January of [address] scan of the abdomen and pelvis and I did see lab works from April 2018 and did see blood work from January of 2019. Other than that I did not see lab work completed from four weeks ago. Decision was made to admit the patient to the hospital for further workup and treatment because of the bloody diarrhea and persistent nausea and vomiting. While inpatient he did have an array of blood work and his stool cultures did grow out positive for Campylobacter imaging. On admission white count normal at 8.32, hemoglobin 15.7, hematocrit 50, platelet count 278. INR 0.97. Blood gases showed a p02 of 83, hco3 of 21.8, pH 7.40. Hemoglobin A1C was 12.74, electrolytes normal. LFTs were normal. CRP 7, BNP was 26, procalcitonin less than 0.05. Urinalysis showed 3+ glucose otherwise negative. The patient was started on Zithromax for Campylobacter infection. Overall the patient is doing better and symptoms have improved. He denies any abdominal pain. He is very anxious to go home. We are setting him up with [employer] plan to afford his insulin for Lantus and Novolog flexpen and those insulins have been called to [facility] per our office. He did have a dose of Zithromax today so he will need two additional doses of Zithromax and then those two tablets have been called in per our office as well. Today on exam, his lungs are clear. Heart regular rate and rhythm. Plans are for a gastric emptying study tomorrow. He understands to do blood sugar monitoring fasting in the morning and two hours after breakfast, two hours after lunch and then two hours after supper. He denies any complaints today. He is again ready to go home. He will followup in the office next week. As far as medicines, the Humalog on his medicine sheet that was wrote in discharge instructions to discontinue that and then that will be changed over to a Novolog Flexpen and then he will continue the Lantus that has been called in. DISCHARGE DIET: Strict ADA diet. ACTIVITY LEVEL: Increase activity as tolerated. FOLLOWUP APPOINTMENT: He will followup next week and will further decide labs and diagnostic testing. TIME SPENT: GREATER THAN 30 MINUTES MTDD
== END 2019-04-24 15:30 | disposition home or self-care (01) | DRG 372 ==
LOC: MEDSURG A 12:43
PROVIDERS: ADMIT General Practice; ATTEND General Practice
DX: A04.5 Campylobacter enteritis (principal); K92.1 Melena; E11.65 Type 2 diabetes mellitus with hyperglycemia; E11.42 Type 2 diabetes mellitus with diabetic polyneuropathy; E66.9 Obesity, unspecified; K31.84 Gastroparesis; K21.9 Gastro-esophageal reflux disease without esophagitis; R53.1 Weakness; R53.83 Other fatigue; R19.7 Diarrhea, unspecified; R20.0 Anesthesia of skin; Z68.34 Body mass index [BMI] 34.0-34.9, adult; Z79.4 Long term (current) use of insulin; Z91.14 Patient's other noncompliance with medication regimen
CPT/HCPCS: 36415; 80053; 80061; 81001; 82150; 82272; 82803; 82962; 83036; 83519; 83525; 83690; 83880; 84145; 85008; 85025; 85610; 85651; 85730; 86140; 86617; 87015; 87040; 87045; 87899; 89055; 93005; 93010; 97802

== ENCOUNTER 2019-04-25 07:45 | Outpatient (CLI) ==
--- NOTE | 2019-04-25 13:55 | NM ---
EXAM: Gastric emptying study HISTORY: Type 2 diabetes with hyperglycemia and vomiting. COMPARISON: None of this type. PROCEDURE: The patient was administered 2.1 mCi of 99m technetium sulfur colloid mixed with eggs toas t and water as a solid phase meal. Imaging of the stomach was performed at one hour intervals for 3 hours in anterior and posterior projections simultaneously. Subsequently time activity curves were c alculated using anterior, posterior and geometric mean data. The gastric emptying half-time was dete rmined. FINDINGS:The examination demonstrates a normal appearance of activity within the stomach. Sequential images demonstrate transit of activity from the stomach into the small bowel. The examination demon strates 4% emptying at 1/2 hour, 20% emptying at 1 hour, 76% emptying at 2 hours and 95% emptying at 3 hours. The gastric emptying half-time is between 1 and 2 hours ( approximately 90 minutes). IMPRESSION: 1.The gastric emptying half-time is approximately 90 minutes ( borderline prolonged). 2.Images of the activity in the stomach and small bowel are within normal limits.
== END 2019-04-25 07:46 | disposition home or self-care (01) ==
LOC: RAD 07:45
PROVIDERS: ATTEND General Practice
DX: R11.2 Nausea with vomiting, unspecified (principal); E11.65 Type 2 diabetes mellitus with hyperglycemia; K21.9 Gastro-esophageal reflux disease without esophagitis; K92.1 Melena